=== PATIENT | male | born 1985 | race Caucasian/White ===

== ENCOUNTER 2019-09-17 00:05 | Emergency (ER) | payer SELFPAY ==
[~2019-09-17] VITALS: Ht 162.6 cm; Wt 65.4 kg
[2019-09-17 00:18] VITALS: BP 142/90
--- NOTE | 2019-09-17 00:21 | NUR ---
TO LOBBY A/W BED AMBULATORY
--- NOTE | 2019-09-17 02:44 | NUR ---
PT AMBULATED TO BED 1.
--- NOTE | 2019-09-17 02:55 | NUR ---
FIRST CONTACT WITH PT ACCOMPANIED BY DR. GUNDERSON. PT LAYING ON SIDE C/O LETHARGY X 1 DAY AND SORE THROAT X 1 WEEK. DENIES PAIN. AMBULATES TO WITH STEADY GAIT TO COLLECT URINE.
--- NOTE | 2019-09-17 03:05 | NUR ---
PHLEB AT BEDSIDE FOR LABS.
[2019-09-17 03:12] LABS: WHITE BLOOD COUNT (AUTO) 9.8 K/uL (4.8-10.8)
[2019-09-17 04:11] LABS: APPEARANCE,URINE CLEAR (CLEAR); BILIRUBIN,URINE NEGATIVE (NEGATIVE); BLOOD, URINE NEGATIVE (NEGATIVE); COLOR,URINE YELLOW (YELLOW); LEUKOCYTE ESTERASE ,URINE NEGATIVE (NEGATIVE); NITRITE, URINE NEGATIVE (NEGATIVE); UGLUCOSE 3+ (NEGATIVE)
[2019-09-17 04:11] LABS: BASOPHILS % (AUTO) 0.4 % (0.0-2.0); EOSINOPHILS # (AUTO) 0.2 K/uL (0-0.4); EOSINOPHILS % (AUTO) 1.6 % (0.0-4.0); HEMOGLOBIN 18.9 g/dL (12.0-18.0); LYMPHOCYTES # (AUTO) 3.6 K/uL (2.0-11.5); LYMPHOCYTES % (AUTO) 36.5 % (20.5-51.1); MEAN CORPUSCULAR HEMOGLOBIN 32 pg (27-31); MEAN CORPUSCULAR HGB CONC 36 g/dL (33-37); MEAN CORPUSCULAR VOLUME 90.1 fL (80-94); MONOCYTES # (AUTO) 0.6 K/uL (0.8-1.0); MONOCYTES % (AUTO) 6.4 % (1.7-9.3); NEUTROPHILS # (AUTO) 5.4 K/uL (1.8-7.7); NEUTROPHILS % (AUTO) 55.1 % (42.2-75.2); PLATELET COUNT (AUTO) 269 K/uL (140-450); RED CELL DISTRIBUTION WIDTH 12.8 % (11.6-13.7)
[2019-09-17 04:13] LABS: ALBUMIN 4.2 g/dL (3.4-5.0); ANION GAP 17.3 (8-16); CARBON DIOXIDE 25.7 mmol/L (21-32); CREATININE 1.2 mg/dL (0.6-1.3); TOTAL BILIRUBIN 1.2 mg/dL (0.0-1.0)
[2019-09-17 04:19] LABS: HEMATOCRIT 56.7 % (36-52)
[2019-09-17] MEDS ORDERED: NACL 0.9% 1,000 ML IV ONE ×2 (04:25→05:40)
[2019-09-17] MEDS ORDERED: INSULIN REGULAR, HUMAN 100 UNIT/ML VIAL IVP ONE ×2 (04:25→05:40)
--- NOTE | 2019-09-17 04:55 | NUR ---
MEDICATED WITH 12 UNITS IVP SHAMEKA Harris WILL REASSESS BS.
[2019-09-17 05:09] LABS: RBC,URINE NONE SEEN /HPF (0-5); WBC,URINE 0-5 /HPF (0-5)
--- NOTE | 2019-09-17 05:30 | NUR ---
resting with eyes closed. arousable to verbal stimuli. denies pain/discomfort. breathing even, unlabored.
[2019-09-17] MEDS ORDERED: POTASSIUM CHLORIDE 10 MEQ TABER PO ONE (05:40)
--- NOTE | 2019-09-17 05:55 | NUR ---
medicated with 10 units humulin insulin for bs 317. will reassess.
[2019-09-17 06:45] VITALS: BP 127/70
--- NOTE | 2019-09-17 06:45 | NUR ---
Patient discharged with v/s stable. Written and verbal after care instructions given and explained. Patient alert, oriented and verbalized understanding of instructions. Ambulatory with steady gait. All questions addressed prior to discharge. ID band removed. Patient advised to follow up with PMD. Rx of metformin given. Patient educated on indication of medication including possible reaction and side effects. Opportunity to ask questions provided and answered.
== END 2019-09-17 06:42 | disposition home or self-care (01) ==
LOC: MED 00:05
DX: E11.9 Type 2 diabetes mellitus without complications (principal)
CPT/HCPCS: 36415; 80053; 81001; 85025; 96361; 96374; 96376; 99284; J1815; J7030

== ENCOUNTER 2023-10-07 11:28 | Emergency (ER) | payer MEDICAID ==
[~2023-10-07] VITALS: Ht 152.4 cm; Wt 59.0 kg
[2023-10-07 11:31] VITALS: BP 119/83; PULSE 124; RESP 18; TEMP 97.5; O2SAT 97
[2023-10-07] MEDS: TETRACAINE HCL/PF 0.5% OPTH 4 ML BTL OP ONE (12:10)
[2023-10-07] MEDS: FLUORESCEIN OPTH STRIP 1 MG OP ONE (12:10)
[2023-10-07] MEDS ORDERED: ERYT5OIN51 LEFT EYE (13:31)
[2023-10-07] MEDS ORDERED: POLY15SO74 LEFT EYE (13:31)
[2023-10-07 14:00] VITALS: BP 120/82; PULSE 88; RESP 16; TEMP 98; O2SAT 99
== END 2023-10-07 14:00 | disposition home or self-care (01) ==
LOC: MED 11:28
DX: H10.9 Unspecified conjunctivitis (principal); Z79.899 Other long term (current) drug therapy
CPT/HCPCS: 99283